=== PATIENT | female | born 1980 | race Caucasian/White ===

== ENCOUNTER 2019-03-09 11:02 | Emergency (ER) | payer OTHER ==
[~2019-03-09] VITALS: Ht 170.2 cm; Wt 104.3 kg
[2019-03-09 11:14] VITALS: BP 195/109
[2019-03-09] MEDS ORDERED: PRILOSEC10 MG PO (11:16)
[2019-03-09] MEDS ORDERED: NORVASC 2.5 MG2.5 M1 PO (11:16)
[2019-03-09] MEDS ORDERED: METFORMIN HCL500 M3 PO (11:16)
[2019-03-09] MEDS ORDERED: LISINOPRIL2.5 MG PO (11:16)
[2019-03-09] MEDS ORDERED: ZOLOFT50 M1 PO (11:17)
[2019-03-09] MEDS ORDERED: ADVIL200 M3 PO (11:17)
[2019-03-09] MEDS ORDERED: AMOXICILLIN 50500 MG PO (11:28)
[2019-03-09] MEDS ORDERED: TYLENOL WITH CO1 TA1 PO (11:38)
[2019-03-09] MEDS ORDERED: LIDOCAINE VISC100 ML SWISH&SPIT (11:43)
== END 2019-03-09 12:07 | disposition home or self-care (01) ==
LOC: M.ERS 11:02
DX: K04.7 Periapical abscess without sinus (principal); I10 Essential (primary) hypertension; E11.9 Type 2 diabetes mellitus without complications; F32.9 Major depressive disorder, single episode, unspecified; K21.9 Gastro-esophageal reflux disease without esophagitis; F17.210 Nicotine dependence, cigarettes, uncomplicated